=== PATIENT | female | born 1950 | race Two or more races ===

== ENCOUNTER → 2018-06-14 | Outpatient (CLI) | payer MEDICARE ==
[~2018-06-14] MED LIST: AMLO-1 PO; AMLO-111 PO; ATOR40TA69 PO; BLOO-1511 MC; DIPH0.5D12 IM; GLIM1TAB25 PO; GLIM4TAB50 PO; LANC-1147 MC; LEVO50TA86 PO; LEVO75TA73 PO; LISI5TAB25 PO; METF-450 PO; METF10002 PO
[2018-06-14 08:44] LABS: LDL CHOLESTEROL 45 mg/dl
== END ==
LOC: LAB 07:31
PROVIDERS: ATTEND Emergency Medicine
DX: E11.9 Type 2 diabetes mellitus without complications (principal); E78.2 Mixed hyperlipidemia; E03.9 Hypothyroidism, unspecified; I10 Essential (primary) hypertension
CPT/HCPCS: 36415; 82040; 82247; 82310; 82374; 82435; 82465; 82565; 82947; 83036; 83718; 84075; 84132; 84155; 84295; 84443; 84450; 84460; 84478; 84520

== ENCOUNTER → 2018-12-05 | Outpatient (CLI) | payer MEDICARE, BC ==
[~2018-12-05] MED LIST changes: -AMLO-111 PO; +AMLO-125 PO; +FLU180SY11 IM; +PNEU0.5D3 IM
[2018-12-05 16:26] LABS: PLATELET COUNT, AUTOMATED 293 K/uL (150-450)
[2018-12-05 16:42] LABS: LDL CHOLESTEROL 20 mg/dl
== END ==
LOC: LAB 16:00
PROVIDERS: ATTEND Emergency Medicine
DX: E11.9 Type 2 diabetes mellitus without complications (principal); E03.9 Hypothyroidism, unspecified; E78.00 Pure hypercholesterolemia, unspecified; I10 Essential (primary) hypertension
CPT/HCPCS: 36415; 82040; 82247; 82310; 82374; 82435; 82465; 82565; 82607; 82947; 83718; 84075; 84132; 84155; 84295; 84443; 84450; 84460; 84478; 84520; 85025

== ENCOUNTER → 2018-12-18 | Outpatient (CLI) | payer MEDICARE, BC ==
[~2018-12-18] MED LIST changes: -DIPH0.5D12 IM; +DIPH0.5S2 IM
== END ==
LOC: LAB 07:32
PROVIDERS: ATTEND Emergency Medicine
DX: E11.9 Type 2 diabetes mellitus without complications (principal)
CPT/HCPCS: 36415; 83036

== ENCOUNTER → 2018-12-27 | Outpatient (CLI) | payer MEDICARE, BC ==
--- NOTE | 2018-12-27 17:20 | EKG ---
FACILITY: [facility] [place] PATIENT NAME: CANDY BARRETT : [id number] MR: [id number] V: [id number] EXAM DATE: ORDERING PHYSICIAN: SAMIRA RIOS TECHNOLOGIST: Test Reason : Pre-op Blood Pressure : / mmHG Vent. Rate : 077 BPM Atrial Rate : 077 BPM P-R Int : 162 ms QRS Dur : 092 ms QT Int : 402 ms P-R-T Axes : 070 -47 024 degrees QTc Int : 454 ms Normal sinus rhythm Possible Left atrial enlargement Left axis deviation Septal infarct , age undetermined Abnormal ECG No previous ECGs available Confirmed by David Smallwood ([id number]) on 12/27/2018 7:42:17 PM Referred By: Confirmed By:David Nava
--- NOTE | 2018-12-27 18:28 | RADIOLOGY IMAGING REPORT ---
FACILITY: [facility] PATIENT NAME: Aysha Seo : 1950 MR: [id number] V: [id number] EXAM DATE: ORDERING PHYSICIAN: GLENIS ABRAMS TECHNOLOGIST: Location: [facility] Patient: Aysha Seo : 1950 Visit/Account:[id number] Date of Sevice: 12/27/2018 Chest with lateral, two views. HISTORY: Preop. COMPARISON: None. The thoracic aorta is mildly elongated. The heart and mediastinum are otherwise unremarkable. Pulmo nary vessels are unremarkable. The lungs are slightly voluminous. The pleural surfaces are unremarka ble. No pneumothorax. An old healed fracture is present in the right distal clavicle. A moderate ch ronic appearing compression fracture is present in the lower thoracic spine. The abdominal aorta is minimally calcified. IMPRESSION: No evidence of acute cardiopulmonary disease. Report Dictated By: Gen Roblero MD at 12/27/2018 6:22 PM Report E-Signed By: Gen Roblero MD at 12/27/2018 6:23 PM WSN:[email or web address]
== END ==
LOC: RAD 17:00
PROVIDERS: ATTEND Emergency Medicine
DX: Z01.818 Encounter for other preprocedural examination (principal); R94.31 Abnormal electrocardiogram [ECG] [EKG]
CPT/HCPCS: 71046; 93005

== ENCOUNTER → 2018-12-27 | Outpatient (CLI) | payer MEDICARE, BC | LOC: LAB 16:29 | PROVIDERS: ATTEND Orthopaedic Surgery Hand Surgery | DX: Z01.812 Encounter for preprocedural laboratory examination (principal); Z01.810 Encounter for preprocedural cardiovascular examination; M25.562 Pain in left knee; M25.561 Pain in right knee; M17.0 Bilateral primary osteoarthritis of knee | CPT/HCPCS: 81001 ==

== ENCOUNTER → 2019-01-11 | Outpatient (CLI) | payer MEDICARE, BC ==
--- NOTE | 2019-01-15 10:19 | RADIOLOGY IMAGING REPORT ---
FACILITY: [facility] PATIENT NAME: CANDY BARRETT : [id number] MR: [id number] V: [id number] EXAM DATE: [id number] ORDERING PHYSICIAN: GLENIS ABRAMS TECHNOLOGIST: Jade Pina PROCEDURE: BILATERAL DIGITAL SCREENING MAMMOGRAM WITH CAD ASSISTED INTERPRETATION & 3D TOMOSYNTHESIS REASON FOR STUDY: Screening. FAMILY HISTORY OF BREAST CANCER: BREAST PROCEDURES/TREATMENTS: COMPARISON: Priors. VIEWS OBTAINED: 2D & 3D full field CC & MLO. BREAST DENSITY: Scattered fibroglandular tissue is present in both breasts. MAMMOGRAM FINDINGS: Benign appearing asymmetries are scattered bilaterally, essentially unchanged. IMPRESSION: BIRADS 1: Negative. DIAGNOSTIC CATEGORY 1--NEGATIVE. RECOMMENDATIONS: ROUTINE MAMMOGRAM AND CLINICAL EVALUATION IN 1 YEAR. Dictated by: Gen Roblero M.D. on 01/14/2019 at 9:14 Transcribed by: KANDI on 01/14/2019 at 10:17 Approved by: Betty Boucher M.D. on 01/15/2019 at 10:18 [facility]
== END ==
LOC: MAMO 02:25
PROVIDERS: ATTEND Emergency Medicine
DX: Z12.31 Encounter for screening mammogram for malignant neoplasm of breast (principal); R94.31 Abnormal electrocardiogram [ECG] [EKG]
CPT/HCPCS: 77063; 77067; 93306

== ENCOUNTER → 2019-01-16 | Outpatient (CLI) | payer MEDICARE, BC ==
[~2019-01-16] MED LIST changes: +REGADENOSON 0.4 MG/5 ML SYR ONE
--- NOTE | 2019-01-16 17:00 | RADIOLOGY IMAGING REPORT ---
FACILITY: [facility] PATIENT NAME: Aysha Seo : 1950 MR: [id number] V: [id number] EXAM DATE: [id number] ORDERING PHYSICIAN: GLENIS ABRAMS TECHNOLOGIST: Location: [facility] Patient: Aysha Seo : 1950 Visit/Account:[id number] Date of Sevice: 01/16/2019 EXAMINATION: Single isotope SPECT imaging with regadenoson infusion and gated SPECT imaging. DATE OF EXAMINATION: January 16, 2019. DATE OF INTERPRETATION: January 16, 2019. REQUESTING PHYSICIAN: GLENIS ABRAMS. INDICATION: The patient is a 68-year-old female evaluated for diabetes. PROCEDURE: After informed consent the patient received an intravenous injection of 12.3 mCi of Tc-99 m sestamibi followed at an appropriate time interval by rest imaging. The patient then subsequently received an intravenous infusion of 0.4 mg of regadenoson per protocol without complication. Resting heart rate was 86 bpm with a peak heart rate of 131 bpm. Blood pressure at rest was 142 / 87 and fo llowing infusion was 182 / 103. Baseline EKG demonstrates sinus rhythm. There were no diagnostic EK G changes of ischemia following infusion. Symptoms were nonspecific. The patient then received an i ntravenous injection of 30.5 mCi of Tc-99m sestamibi followed by stress imaging. RAW DATA: Examination of the summed raw data revealed a fair quality study. MYOCARDIAL PERFUSION: The tomographic images demonstrate normal perfusion rest and stress. GATED IMAGES: The gated images demonstrate normal regional wall motion and thickening, LVEF 70%. IMPRESSION: 1. Nondiagnostic Lexiscan stress ECG 2. Normal myocardial perfusion scan. 3. Normal LV systolic function; LVEF 70%. Report Dictated By: Andreas Bella MD at 01/16/2019 4:51 PM Report E-Signed By: Andreas Bella MD at 01/16/2019 4:55 PM WSN:[id number]
--- NOTE | 2019-01-16 18:58 | RT STRESS TEST REPORT ---
FACILITY: [facility] [place] PATIENT NAME: CANDY BARRETT : [id number] MR: [id number] V: [id number] EXAM DATE: ORDERING PHYSICIAN: GLENIS ABRAMS TECHNOLOGIST: Harshal Acquisition Time: 2019-01-16 14:36:03 Total Exercise Time: 00:01:00 Test Indications: DIABETES Medications: SEE CHART Protocol: LEXISCAN Max HR: 131 BPM 87% of Pred: 150 BPM Max BP: 182/103 mmHG Max Work Load: 1.0 METS She did not have chest pain, but did have nausea after the Lexiscan administration. The nausea resol sulema before the end of the test. There were no ST changes. See the nuclear images for details. Confirmed by SHEREE MCDONALD ([id number]) on 01/16/2019 6:58:02 PM Referred By: Overread By: SHEREE MCDONALD
== END ==
LOC: NUC 01:39
PROVIDERS: ATTEND Emergency Medicine
DX: R94.31 Abnormal electrocardiogram [ECG] [EKG] (principal)
CPT/HCPCS: 78452; 93017; A9500; J2785

== ENCOUNTER 2019-01-25 00:50 | Observation (INO) | payer MEDICARE, BC ==
[2019-01-24 16:47] LABS: INR 0.96
--- NOTE | 2019-01-24 17:29 | RADIOLOGY IMAGING REPORT ---
FACILITY: [facility] [place] PATIENT NAME: Aysha Seo : 1950 MR: [id number] V: [id number] EXAM DATE: ORDERING PHYSICIAN: SAMIRA RIOS TECHNOLOGIST: Location: [facility] [place] Patient: Aysha Seo : 1950 Visit/Account:[id number] Date of Sevice: 01/17/2019 XR KNEES BILAT AP STANDING Indication: PREOP L TKA Comparison: None. Findings: Right leg length: 84 cm. This is measured from the cephalad portion of the femoral head to the tibia l distal articular surface. Right femur measurement from the superior margin of the femoral head to the medial femoral condyle is 46.5 cm.. The right tibia measures 37.5 cm from the medial tibial plat eau to the medial tibial plafond. Left leg measurement: 84 cm. The left femur measures 46 cm from the superior margin of the left femo ral head to the medial femoral condyle. The left tibia measures 37.5 cm from the medial tibial plate au to the medial tibial plafond. No acute osseous amount is seen in the right or left lower extremity. Impression: Right leg length is 84 cm, left leg length is 84 cm. Report Dictated By: Haider Davidson at 01/24/2019 5:20 PM Report E-Signed By: Haider Davidson at 01/24/2019 5:24 PM WSN:[id number]
[~2019-01-25] VITALS: Ht 162.6 cm; Wt 61.2 kg
[2019-01-25] VITALS (14 sets, daily range): BP systolic 92–144; BP diastolic 57–86
[~2019-01-25 00:50] MED LIST changes: -REGADENOSON 0.4 MG/5 ML SYR ONE
[2019-01-25] MEDS ORDERED: MIDAZOLAM 2 MG/2 ML VIAL IVP PRN (06:15)
[2019-01-25] MEDS ORDERED: VANCOMYCIN 1 GM ADDVIAL 1 GM in NS(*) 0.9% 250 ML ADDVAN BAG 250 ML IVPB ONE (06:15)
[2019-01-25] MEDS ORDERED: LIDOCAINE/SOD BICARB 8.4% SYR ID ONE (06:15)
[2019-01-25] MEDS ORDERED: NORMOSOL R SOLN(*) 1000 ML BAG 1,000 ML IV PRN (06:15)
[2019-01-25] MEDS ORDERED: CELECOXIB 200 MG CAP PO ONE (06:15)
[2019-01-25] MEDS ORDERED: ACETAMINOPHEN 500 MG TAB PO ONE (06:15)
[2019-01-25] MEDS ORDERED: TRANEXAMIC AC 1000 MG/10ML SDV 1,000 MG in DEXTROSE 5% 50 ML BAG 50 ML IV ONE (06:15)
[2019-01-25] MEDS ORDERED: ROPIVACAINE/EPI/CLONIDINE/KET 50 ML SYRINGE INJ ONE (06:15)
[2019-01-25] MEDS ORDERED: PREGABALIN 75 MG CAPSULE PO ONE (06:15)
[2019-01-25] MEDS ORDERED: FAMOTIDINE 20 MG TAB PO ONE (06:15)
[2019-01-25] MEDS ORDERED: methylPREDNIS ACE 40MG/ML VIAL ONE ×2 (06:53→07:03)
[2019-01-25] MEDS ORDERED: LIDOCAINE 1%MDV(*)200 MG/20 ML 1 ML ONE (06:57)
[2019-01-25] MEDS ORDERED: ROPIVACAINE 0.5% 20 ML VIAL ONE (07:00)
[2019-01-25] MEDS ORDERED: fentaNYL CITR 100 MCG/2 ML AMP ONE ×2 (07:29→09:38)
[2019-01-25] MEDS ORDERED: PROPOFOL EMUL(*) 10MG/ML 20 ML 20 ML ONE (09:12)
[2019-01-25] MEDS ORDERED: ONDANSETRON 4 MG/2 ML VIAL ONE (09:12)
[2019-01-25] MEDS ORDERED: DEXAMETHASONE SOD PHOS 10MG/ML ONE (09:12)
[2019-01-25] MEDS ORDERED: oxyCODON/ACET (*)5/325MG (CII) 1 TAB TAB PO PRN (09:55)
[2019-01-25] MEDS ORDERED: KCL/D5LR 20 MEQ/1000 ML PREMIX 1,000 ML IV PRN (09:55)
[2019-01-25] MEDS ORDERED: diphenhydrAMINE 25 MG CAP PO PRN (09:55)
[2019-01-25] MEDS ORDERED: PROMETHAZINE 25 MG/ML 1 ML AMP IVP PRN (09:55)
[2019-01-25] MEDS ORDERED: MAGNESIUM CITRATE 300 ML BTL PO PRN (09:55)
[2019-01-25] MEDS ORDERED: ONDANSETRON 4 MG/2 ML VIAL IVP PRN (09:55)
[2019-01-25] MEDS ORDERED: FLUSH 10 ML SYR IVP PRN (09:55)
[2019-01-25] MEDS ORDERED: ACETAMINOPHEN 500 MG TAB PO PRN (09:55)
--- NOTE | 2019-01-25 10:27 | OPERATIVE REPORT 1 ---
EVENT DATE: January 25, 2019 SURGEON: Foreign Tompkins MD ANESTHESIOLOGIST: Shashank Clifton MD ANESTHESIA: General plus adductor canal block. CERTIFIED MEDICAL ASST: GENA Merida PREOPERATIVE DIAGNOSIS Bilateral knee degenerative joint disease, left worse than right POSTOPERATIVE DIAGNOSIS Bilateral knee degenerative joint disease, left worse than right. PROCEDURES PERFORMED 1. Steroid injection at right arthritic knee; 2. Left total knee arthroplasty; 41404 3. Bone grafting large femoral condylar cyst using autograft (inclusive of TKA). ESTIMATED BLOOD LOSS Minimal. IV FLUIDS 1300 crystalloid, no colloid. TOURNIQUET TIME 70 minutes. SPECIMENS None. COMPLICATIONS None. IMPLANTS USED Attune femoral posterior stabilized narrow 5 cemented femur, a tibial baseplate rotating platform size 5, anatomic 32 mm patella and a rotating platform posterior stabilized size 5 x 7 mm insert, all cemented. DESCRIPTION OF PROCEDURE Patient was brought into the operating room and placed on the OR table in the supine position. After doing the adductor canal block under ultrasound guidance, Dr. Clifton placed the patient under a general anesthetic. The right knee was prepped from the lateral side and then an injection was given using 80 mg Depo-Medrol and 8 cc of lidocaine. Subsequently, the left knee was prepped and draped in the usual sterile fashion. The limb was exsanguinated and the tourniquet was inflated. We did an anterior utilitarian incision deepened through the skin and subcutaneous tissue. A medial parapatellar arthrotomy followed. The fluid was clear. The menisci were excised. The ACL was excised and the patellofemoral ligament did not require further treatment. We removed a large portion of the fat pad that was in the way. We exposed the anterior aspect of the femur and then prepared for the femoral cuts. Our long plate films demonstrated that she had a significant bow in the femur. Therefore, we planned on a 6-degree cut with the entry point being somewhat over the more lateral aspect of the knee. We did this and we got good passage of the tristan. We made out cuts, taking 9 mm off the distal aspect of the knee at a 6-degree angle. We excised the osteophytes at that time. A sizing trial looked like it would be a 5 and it would most likely end up being a narrow. Once we did these chamfer cuts, we then went ahead with the box cut and then drilled our logs after trialing. Going to the tibia, intramedullary guidance was obtained and we made our cut 3 mm below the deficient side and 9 mm below the articular surface of the intact side. We removed a little bit of the posterior osteophytes on the medial side, recessed a bit of the PCL at the femur so we would have better laxity and then trialed a 4 and a 5. It looked like the 5 fit best so we prepared for the 5, having injected the periosteum and posterior aspect of the knee with a combined solution for postoperative pain control. We prepared the tibia and then trialed. It fit well, although looked like we could probably go with a slightly larger implant than a size 5. We left the 5 for now and did the patella. We selected a 32. It measured approximately 23 initially so we took off the standard amount at 9.5 and left us with about a 13 mm patella. The 32 fit best. We drilled the lug holes and did the trial again and it fit well. At this point, while removing the implants, we then identified a soft area in the lateral femoral condyle that was actually quite large. I was somewhat surprised it communicated with the central cut that was made for the posterior stabilized element and also went all the way up to the lug hole. I used a curette and a cautery to remove this soft tissue matter that was the cyst and then used a 1.5 mm drill to drill the margins of the cyst where it was corticated and also the areas of eburnation on the medial aspect of the tibia. We took rongeur and created a cancellous graft from previously cut bone and packed it into the defect firmly with an impactor to re-establish integrity of this femoral condyle. It took a moderate amount of time to do this as it was quite large. Once we were packed it, it looked like the implant would hold quite well. We smoothed the margins with a rasp as necessary and then proceeded with implantation. We washed with Aricept as well as regular saline. Bone blocks were placed in the tibia and the femur. Cement was mixed and we proceeded to cement the implant starting with the tibia, then the femur and then the patella. Once it was well polymerized with excess cement removed, additional TXA was given. We deflated the tourniquet at 70 minutes and then trialed with 5, 6 and 7. A 7 appeared to fit best so we went with a 7 final implant. The wound was irrigated one final time with Aricept and then saline followed by closure with #1 Vicryl followed by 2-0 and 3-0 Vicryl as necessary. 4-0 Monocryl completed the subcuticular closure and then Dermabond was applied. She was awakened and transferred to the recovery area in stable condition with a dressing in place. CARLENE
[2019-01-25] MEDS ORDERED: METF-450 PO (11:13)
--- NOTE | 2019-01-25 13:29 | Hospitalist Consultation ---
History of Present Illness Requesting Physician Dr. Tompkins Reason for Consult Medical Management Chief Complaint s/p left knee replacement History of Present Illness She was admitted s/p left knee replacement. It is reported the surgery went well and without complication. History Problems: (1) Type 2 diabetes mellitus Status: Chronic (2) Hypertension Status: Chronic (3) Hypercholesteremia Status: Chronic (4) Hypothyroidism Status: Chronic Home Meds Active Scripts Atorvastatin Calcium (ATORVASTATIN CALCIUM) 40 Mg Tablet, 0.5 TAB PO QDAY, #90 TAB 3 Refills Prov:GLENIS ABRAMS MD 01/17/19 Lancets (ONE TOUCH DELICA) 1 Each Each, 1 EACH MC DAILY, #1 3 Refills Prov:GLENIS ABRAMS MD 01/30/18 Blood Sugar Diagnostic (GLUCOSE TEST STRIP) 1 Each Strip, 1 EACH MC DAILY, #50 STRIP 11 Refills Prov:GLENIS ABRAMS MD 01/19/18 Levothyroxine Sodium (LEVOTHYROXINE SODIUM) 75 Mcg Tablet, 75 MCG PO QDAY, #90 TAB 3 Refills Prov:GLENIS ABRAMS MD 01/18/18 Lisinopril (LISINOPRIL) 5 Mg Tablet, 5 MG PO QDAY, #90 TAB 3 Refills Prov:GLENIS ABRAMS MD 01/18/18 Amlodipine Besylate (AMLODIPINE BESYLATE) 5 Mg Tablet, 1 TAB PO QDAY, #90 TAB 3 Refills Prov:GLENIS ABRAMS MD 01/18/18 Reported Medications Metformin Hcl (METFORMIN HCL) 500 Mg Tablet, 1 TAB PO TID, TAB 01/25/19 Discontinued Scripts Metformin Hcl (METFORMIN HCL ER) 1,000 Mg Tab.er.24, 1 TAB PO BID, #180 TAB 3 Refills Prov:GLENIS ABRAMS MD 01/18/18 Allergies: Coded Allergies: No Known Drug Allergies (Unverified , 11/13/15) Hx Smoking: No Smoking Status: Never Smoker Caffeine Intake: Coffee, Tea Caffeine/Cups Per Day: 2 cups/day Hx Alcohol Use: No Hx Substance Use Disorder: No Social Drug Use: Never Review of Systems All Systems Reviewed/Normal: Yes, Except as Noted Exam Vital Signs Vital Signs Date Time Temp Pulse Resp B/P (MAP) Pulse Ox O2 Delivery O2 Flow Rate FiO2 01/25/19 11:24 2 Nasal Cannula 01/25/19 10:55 98.0 85 16 122/77 (92) 2.0 General Appearance: Alert, Awake, No Acute Distress, Afebrile Neuro: No Gross deficits Cardiovascular: Regular Rate and Rhythm Respiratory: No Respiratory Distress, Clear to Auscultation Psych: Alert & Oriented X3, Appropriate Mood & Affect Medical Decision Making Data Points Result Diagram: 01/25/19 0956 Assessment and Plan Problems: (1) Status post left knee replacement Status: Acute Assessment & Plan: She will be placed on Aspirin for DVT prophylaxis. (2) Hypertension Status: Chronic Assessment & Plan: Continue chronic Lisinopril and Amlodipine with hold parameters. (3) Hypercholesteremia Status: Chronic Assessment & Plan: Continue chronic atorvastatin. (4) Type 2 diabetes mellitus Status: Chronic Assessment & Plan: Continue chronic Metformin starting tomorrow. She will be placed on AC/HS blood glucose checks and SS inulin #1. (5) Hypothyroidism Status: Chronic Assessment & Plan: Continue chronic Levothyroxine. Venous Thromboembolism Antithrombotics Is Pt On Any Antithrombotics?: No Exam Sepsis Risk: No Definite Risk Problem Qualifiers (1) Hypertension: Hypertension type: essential hypertension Qualified Codes: I10 - Essential (primary) hypertension ISIDRO KRAUSEP January 25, 2019 13:29
--- NOTE | 2019-01-25 15:17 | RADIOLOGY IMAGING REPORT ---
[place] [facility] [place] NAME: Aysha Seo : 1950 MR: [id number] V: [id number] EXAM DATE: ORDERING PHYSICIAN: SAMIRA RIOS TECHNOLOGIST: Location: [facility] Patient: Aysha Seo : 1950 Visit/Account:[id number] Date of Sevice: 01/25/2019 KNEE LIMITED LEFT Indication: Left knee arthroplasty. Comparison: Bilateral knee radiograph 01/24/2019 Findings: 2 nonweightbearing views are obtained. The patient is status post total knee arthroplasty. No perihardware lucency or fracture is seen. No malalignment is seen on these nonweightbearing images. Soft tissue swelling, joint effusion, and soft tissue gas is compatible with the immediate postoperat janine state. IMPRESSION: 1. New total knee arthroplasty with no hardware complication or malalignment on these nonweightbeari ng images. Report Dictated By: Gisela Smith MD at 01/25/2019 3:11 PM Report E-Signed By: Gisela Smith MD at 01/25/2019 3:13 PM WSN:[email or web address]
--- NOTE | 2019-01-25 16:42 | NUR ---
Physical Therapy Impression The Pt. speaks limited Polish so the was present to translate throughout visit for instructional purposes. Pt lives w/ in single level home in [place]. No pain/ lightheadedness was reported during visit. Pt. was SBA for sit<>supine bed mobility and CGA for sit<>stand. Pt. took a few steps in place before ambulation. Pt. was able to walk to bathroom and back to bed. A break was taken to use the bathroom. Pt. required CGA of 1, w/ RW and O2. After ambulation, Pt. was left in bed w/ CPM. Pt was not present at pre-op so this was first time seeing the device. Her was instructed on use of the device and parameters. Pt was left on CPM in 0-40 degree range, reporting no pain w/ the movement. Recommend OP PT at [place]. Physical Therapy Goals 1. Mod I bed mobility. 2. Mod I transfers. 3. Mod I gait x 150' with RW. 4. Independent use of CPM. Patient's Goals
--- NOTE | 2019-01-25 16:42 | NUR ---
This Physical Therapist or Well Logging Operator [employer] was present for the entire physical therapy session directing the services, making the skilled judgement, and was not engaged in treating another patient or doing another task at the same time as the treatment session. Addendum: 01/25/19 at 1642 by KARTIK HUGHES PT Amended: Links added.
[2019-01-25] MEDS: INSULIN HUM LISPRO 100 UN/ML 3 ML VIAL SUBQ PRN ×2 (17:27→21:23)
[2019-01-25] MEDS: ATORVASTATIN 10 MG TAB PO SCH (21:23)
[2019-01-26 03:41] VITALS: BP 107/71
[2019-01-26] MEDS ORDERED: LEVOTHYROXINE SOD 0.075 MG TAB PO SCH (06:00)
--- NOTE | 2019-01-26 06:11 | Hospitalist Progress Note ---
Subjective Progress Notes Subjective No new problems or complaints. She and her are planning on DC today. Physical Exam Vital Signs Date Time Temp Pulse Resp B/P (MAP) Pulse Ox O2 Delivery O2 Flow Rate FiO2 01/26/19 03:41 98.0 84 16 107/71 (83) 93 Room Air 01/25/19 19:33 1.0 Intake and Output 01/26/19 07:00 Intake Total 1890 ml Balance 1890 ml Intake Oral 540 ml IV Total 1350 ml # Voids 4 General Appearance: Alert, Awake Result Diagram: 01/25/19 0956 Assessment and Plan Problems: (1) Status post left knee replacement Status: Acute Assessment & Plan: She will be on Aspirin 325mg daily x5 weeks for DVT prop hylaxis. (2) Hypertension Status: Chronic Assessment & Plan: Continue chronic Lisinopril and Amlodipine. (3) Hypercholesteremia Status: Chronic Assessment & Plan: Continue chronic atorvastatin. (4) Type 2 diabetes mellitus Status: Chronic Assessment & Plan: Continue chronic Metformin. She will be on AC/HS blood glucose checks and SS inulin #1 while hospitalized. (5) Hypothyroidism Status: Chronic Assessment & Plan: Continue chronic Levothyroxine. Exam Sepsis Risk: No Definite Risk Problem Qualifiers (1) Hypertension: Hypertension type: essential hypertension Qualified Codes: I10 - Essential (primary) hypertension TAEY BUSH MD January 26, 2019 06:11
[2019-01-26] MEDS ORDERED: ASPI-764 PO (06:14)
[2019-01-26 07:31] VITALS: BP 127/72
[2019-01-26] MEDS: INSULIN HUM LISPRO 100 UN/ML 3 ML VIAL SUBQ PRN (07:37)
--- NOTE | 2019-01-26 08:53 | NUR ---
Physical Therapy Impression Pt met all PT goals and is safe to d/c home from a mobility stand point when medically appropriate. Pt's spouse present to translate throughout session. Pt is Gabriela for bed mobility, transfers and ambulation. PT instruction for asc/desc platform stair with RW with good re-demonstration. Pt;s spouse instructed in use of CPM. No further PT visits planned. D/C with OP PT Physical Therapy Goals 1. Mod I bed mobility. 2. Mod I transfers. 3. Mod I gait x 150' with RW. 4. Independent use of CPM. Patient's Goals
[2019-01-26] MEDS ORDERED: amLODIPine BESYL(*) 5 MG TAB PO SCH ×2 (09:00)
[2019-01-26] MEDS ORDERED: LISINOPRIL 5 MG TAB PO SCH ×2 (09:00)
[2019-01-26] MEDS ORDERED: metFORMIN HCL 500 MG TAB PO SCH (09:00)
[2019-01-26] MEDS ORDERED: ASPIRIN 325 MG ENTERIC COATED PO SCH (09:00)
[2019-01-26] MEDS ORDERED: OXYC5CAP21 PO (09:23)
[2019-01-26] MEDS: ATORVASTATIN 10 MG TAB PO SCH (09:26)
== END 2019-01-26 05:57 | disposition home or self-care (01) ==
LOC: OR 00:50 → MED 10:49
PROVIDERS: ADMIT Orthopaedic Surgery Hand Surgery; ATTEND Orthopaedic Surgery Hand Surgery
DX: M17.0 Bilateral primary osteoarthritis of knee (principal); E11.9 Type 2 diabetes mellitus without complications; I10 Essential (primary) hypertension; E78.00 Pure hypercholesterolemia, unspecified; Z79.01 Long term (current) use of anticoagulants
CPT/HCPCS: 27357; 27447; 36415; 36416; 73560; 76942; 77073; 82948; 85014; 85018; 85610; 86850; 86900; 86901; 96372; 97116; 97161; A9270; C1713; C1776; G0378; J1030; J1100; J1815; J2001; J2250; J2405; J2704; J2795; J3010; J3370; J7050; J7060